=== PATIENT | female | born 1970 ===

== ENCOUNTER 2018-11-24 08:37 | Emergency (ER) | payer BC ==
[2018-11-24 09:08] VITALS: O2SAT 97; BMI 23.1
--- NOTE | 2018-11-24 09:31 | C.PDOC ---
History Of Present Illness 48 y/o female presents to ED stating she started bleeding from the nares this morning s/p septoplasty on 11/20/18. Patient states she was taking a shower when she started having the nosebleed. States she coughed up a lot of blood. Denies dizziness, headache, nausea, or other complaints. Time Seen by Provider: 11/24/18 08:59 Chief Complaint (Nursing): ENT Problem History Per: Patient, EMS History/Exam Limitations: None Onset/Duration Of Symptoms: Hrs Current Symptoms Are (Timing): Still Present Past Medical History Reviewed: Historical Data, Nursing Documentation, Vital Signs Vital Signs: Last Vital Signs Temp 99.1 F 11/24/18 08:45 Pulse 136 H 11/24/18 08:45 Resp 98 H 11/24/18 08:45 BP 146/112 H 11/24/18 08:45 Pulse Ox 97 11/24/18 08:45 Family History: States: No Known Family Hx Review Of Systems Except As Marked, All Systems Reviewed And Found Negative. Constitutional: Negative for: Fever, Chills ENT: Positive for: Nose Discharge (nosebleed) Gastrointestinal: Negative for: Nausea, Vomiting Neurological: Negative for: Headache, Dizziness Physical Exam - Physical Exam Appears: Non-toxic, No Acute Distress Skin: Warm, Dry Head: Normacephalic Eye(s): bilateral: Normal Inspection Nose: Other (small slow drip of blood in right nare) Oral Mucosa: Moist Throat: Other (no active bleeding in back of posterior pharynx) Neck: Supple Cardiovascular: Rhythm Regular Respiratory: Normal Breath Sounds Extremity: Bilateral: Atraumatic, Normal ROM Neurological/Psych: Oriented x3, Normal Speech ED Course And Treatment O2 Sat by Pulse Oximetry: 97 (RA) Pulse Ox Interpretation: Normal Medical Decision Making Medical Decision Making: The nose was irrigated with saline and mild pressure applied to the nose. The case was discussed with the patient's ENT Dr. Pimentel who states that she will see the patient today in the office. The patient states that she will be able to go to the office now. Vitals are improved. On re-exam, Pt is ambulatory in the ED with steady gait. Disposition - Disposition Referrals: Gasper Magaña MD [Staff Provider] - Disposition: HOME/ ROUTINE Disposition Time: 10:40 Condition: STABLE Additional Instructions: YOU MUST GO STRAIGHT TO THE ENT OFFICE FROM HERE WITHOUT FAIL. RETURN IF WORSENED Instructions: Nosebleeds (DC) Forms: [facility] ([place]) - Clinical Impression Clinical Impression: Epistaxis - PA / STAFF ANESTHESIOLOGIST / Resident Statement MD/DO has reviewed & agrees with the documentation as recorded. - Scribe Statement The provider has reviewed the documentation as recorded by the Scribe Misti Martinez All medical record entries made by the Scribe were at my direction and personally dictated by me. I have reviewed the chart and agree that the record accurately reflects my personal performance of the history, physical exam, medical decision making, and the department course for this patient. I have also personally directed, reviewed, and agree with the discharge instructions and disposition.
[2018-11-24] MEDS ORDERED: Phenylephrine 1% Nasal Spray (15 ml) ONE (09:53)
[2018-11-24] MEDS ORDERED: Phenylephrine 1% Nasal Spray (15 ml) NAS STA (09:53)
[2018-11-24 10:34] VITALS: BP 123/87; PULSE 109; RESP 18; TEMP 98.4
== END 2018-11-24 10:47 | disposition home or self-care (01) ==
LOC: C.ER 08:37
DX: R04.0 Epistaxis (principal)